=== PATIENT | female | born 1980 | race Caucasian/White ===

== ENCOUNTER → 2020-03-21 | Outpatient (CLI) | payer BC, OTHER | LOC: LAB 10:31 | PROVIDERS: ATTEND Internal Medicine Cardiovascular Disease | DX: U07.1 COVID-19 (principal) ==

== ENCOUNTER → 2020-06-29 | Outpatient (CLI) | payer BC, OTHER | LOC: RAD 10:55 | DX: Z12.31 Encounter for screening mammogram for malignant neoplasm of breast (principal) ==

== ENCOUNTER → 2020-11-22 | Outpatient (CLI) | payer OTHER | LOC: CAT 16:21 | PROVIDERS: ATTEND Internal Medicine Cardiovascular Disease | DX: Z13.6 Encounter for screening for cardiovascular disorders (principal); M47.817 Spondylosis without myelopathy or radiculopathy, lumbosacral region; M48.07 Spinal stenosis, lumbosacral region; M51.27 Other intervertebral disc displacement, lumbosacral region; M51.25 Other intervertebral disc displacement, thoracolumbar region; E78.00 Pure hypercholesterolemia, unspecified; I25.10 Atherosclerotic heart disease of native coronary artery without angina pectoris ==

== ENCOUNTER → 2020-11-22 | Outpatient (CLI) | payer OTHER ==
[~2020-11-22] MED LIST: DICLOFENAC SODI75 MG PO; FARXIGA10 MG PO; FLEXERIL PO; LEVO-T50 MCG PO; LYRICA 50 MG50 MG PO; METFORMIN HCL500 M3 PO; OZEMPIC1 MG/0.75 SUBQ; PERCOCET 5-3251 EACH PO; ROSUVASTATIN CA20 MG PO
== END ==
LOC: MRI 08:53
DX: Z13.6 Encounter for screening for cardiovascular disorders (principal); M51.27 Other intervertebral disc displacement, lumbosacral region; M47.817 Spondylosis without myelopathy or radiculopathy, lumbosacral region; E78.00 Pure hypercholesterolemia, unspecified; I25.10 Atherosclerotic heart disease of native coronary artery without angina pectoris

== ENCOUNTER → 2020-12-05 | Outpatient (CLI) | payer OTHER ==
[~2020-12-05] VITALS: Ht 170.2 cm; Wt 61.2 kg
[2020-12-05 08:45] VITALS: BP 125/75
--- NOTE | 2020-12-05 09:12 | NUR ---
Pain Clinic Assessment: 1. History of Osteoarthritis: Not Applicable History of Rheumatoid Arthritis: Not Applicable 2. Height: 5 ft. 7 in. 170.2 cm. Weight: 135.0 lb. oz. 61.236 kg. Patient's BMI: 21.1 3. Vital Signs: BP: 125/75 Pulse: 75 Resp: 14 Temp: 02 Sat: 100 ECG Mon: 4. Pain Intensity: 3 5. Fall Risk: Dizziness: N Needs help standing or walking: N Fallen in the last 3 months: N Fall risk comments: 6. Patient on Blood Thinner: None 7. History of Hypertension: N 8. Opioid Therapy greater than 6 weeks: Opiate Contract Signed: 9. Risk Assessment Tool Provided: 1 LOW RISK 10. Functional Assessment Tool: 11. Recreational Drug Use: Never Drug Type: Tobacco Use: Never Smoker Tobacco Type: Amount or Packs/day: How Many Years: Alcohol Use: Yes Frequency: Weekly Quant: 2
--- NOTE | 2020-12-13 10:47 | HPC ---
[facility] [place] [address] PAIN MANAGEMENT CONSULTATION Name: GENE ADAMS Room #: REG OTF [facility].#: [id number] Admission: 12/05/20 Attend Phys: Hao Mejia DO Discharge: Date of : 78 Report #: [id number] THIS REPORT FOR: cc: SHIVANI RITCHIE Physician not on staff Hao Mejia DO ~ cc: Jazmín Allen NP DATE OF SERVICE: 12/05/2020 REFERRING PHYSICIAN: Jazmín Allen NP. CHIEF COMPLAINT: Low back pain, left lower extremity pain with paresthesias. HISTORY OF PRESENT ILLNESS: As you know, the patient is a pleasant 40-year-old female reporting acute onset of back pain that started in 2000, but was controllable with lyxc-zkn-qdxmzcz medications, rest and relaxation. She states that as of 08/2020, her pain intensified. She is now placing pain up to 7/10. She denies specific injury or trauma that may have led to symptom development. She states she would typically have just low back symptoms with spikes lasting for a couple of days and this occurred about every 3 months. She had a history of prior coccydynia as well, but this has subsequently resolved. She sought treatment through chiropractic manipulation for stretching exercises, massage therapy and typical chiropractic manipulation with benefit until just recently. She has trialled ibuprofen over the counter, oxycodone prescriptions and cyclobenzaprine for pain control, noting only transient improvement. Due to lack of improvement with conservative treatment options, the patient was subsequently referred on to our clinic to discuss interventional treatments. The patient reports pain today is continuous and steady with brief and momentary sharp shooting sensations. She indicates pain type as shooting, aching, sharp, numbness and tingling. Places current pain score 3/10, daily average of 2-3/10, worst pain has been as 9/10. The patient states that standing in place, turning left to right with rotation of the lumbar spine, bending over, coughing and sneezing exacerbate symptoms. Pain is improved with certain activities, muscle relaxers and lying down. She has been referred to our service to discuss interventional treatment options to address suspected lumbar radiculopathy. PAST MEDICAL HISTORY: 1. Diabetes mellitus type 2. 2. Hypothyroidism. 3. Dyslipidemia. PAST SURGICAL HISTORY: 1. Tonsillectomy. 2. section. 3. Gastric sleeve. [address] [address] PAIN MANAGEMENT CONSULTATION Name: GENE ADAMS Room #: REG CLI [facility]#: [id number] Admission: 12/05/20 Attend Phys: Hao Mejia DO Discharge: Date of : 78 Report #: [id number] 4. Abdominoplasty with breast augmentation. SOCIAL HISTORY: The patient denies tobacco. Denies IV or illicit drug use. Admits to 6 alcoholic beverages per week. She is currently employed as a nurse practitioner. She is working, not receiving workmen's compensation nor is she trying to obtain disability benefits. She is reporting no litigation in regards to pain. She is unaccompanied at today's visit. REVIEW OF SYSTEMS: Positive for irregular menses, thyroid disease, non-insulin dependent diabetes, chronic low back pain, and left lower extremity pain with paresthesias. All other review of systems negative per 12-point review of systems other than those listed in history of present illness. Pain impact score 23/70, mild interference of daily activities secondary to pain. ALLERGIES: No known drug allergies. CURRENT MEDICATIONS: Percocet 5/325 one tab every 6 hours p.r.n. for pain, cyclobenzaprine 10 mg 3 times a day p.r.n., metformin 500 mg twice a day, levothyroxine 50 mcg once a day, Ozempic 1 mg per week, Farxiga 10 mg once a day. IMAGING: MRI of the lumbar spine obtained 11/22/2020 shows a central disk protrusion at L5-S1 with abutment of anterior thecal sac tapering the central canal to 9.5 mm with early facet degenerative changes of minimal foraminal narrowing. There are endplate degenerative changes at the L5-S1 level. Minimal bulging at the L4-L5 level. Small right foraminal disk bulge at T12-L1 causing minimal right foraminal tapering. PHYSICAL EXAMINATION: VITAL SIGNS: Blood pressure 125/75, pulse 75, respiratory rate 14 and unlabored. The patient 100% on room air. Height 5 feet 7 inches tall, weight 135 pounds, BMI calculated 21.1. GENERAL: Well-developed, well-nourished, well-hydrated 40-year-old female appearing stated age. She is placing current pain score at 3/10. HEENT: Normocephalic, atraumatic. Pupils equal, round and responsive to light. Extraocular muscles are intact. Speech fluent. The patient deemed a good historian. She is wearing a mask in compliance with COVID-19 regulations. LUNGS: Clear. No wheezes, rhonchi, no rales. CARDIOVASCULAR: Regular. No appreciable gallop or rub. EXTREMITIES: Show no clubbing, no cyanosis, no edema. MUSCULOSKELETAL: Lower extremity strength equal and symmetrical, 5/5. Intact to light touch from L1 through S2 dermatomes. Seated straight leg raising negative. Supine straight leg raising positive on the left. AGNES test is negative. Modified Gaenslen's positive for axial low back pain. Ankle clonus [facility] [address] [place] [address] PAIN MANAGEMENT CONSULTATION Name: GENE ADAMS Room #: REG [facility].#: [id number] Admission: 12/05/20 Attend Phys: Hao Mejia DO Discharge: Date of : 78 Report #: [id number] negative. Babinski is negative. Deep tendon reflexes are equal and symmetrical 2+/4 at patella and Achilles. Ankle clonus negative. Gait is normal. Lumbar provocation testing with extension and rotation to the left causes intensification of pain. ASSESSMENT: 1. Symptomatic lumbar radiculopathy. 2. Displacement of lumbar intervertebral disk with radiculopathy. 3. Central canal stenosis of lumbar spine. 4. Lumbosacral spondylosis with radiculopathy. 5. Chronic intractable pain. PLAN: 1. Based on today's physical exam and history the patient has provided, the description the patient uses in regards to pain as well as location of symptoms, likely source of the patient's pain is lumbar radiculopathy. We discussed with the patient the treatment options, we have to address lumbar radicular symptoms. Following was discussed with the patient today. We discussed physical therapy, stretching exercises and core strengthening as a treatment approach. We discussed medication management with the addition of neuropathic pain medications such as amitriptyline, nortriptyline, Cymbalta, Lyrica or gabapentin. We discussed lumbar epidural injections under fluoroscopic guidance for which the patient was referred to our clinic. We also discussed surgical options with the patient today. After reviewing the risks and benefits of all proposed treatment options, the patient chose to begin the authorization process to undergo lumbar epidural injection. She also wishes to begin medication management. 2. Authorization should take us to is anywhere from 4-7 working days. We will begin that process immediately. Once she has the authorization available, we will have the patient return to undergo the first in a series of requested lumbar epidural injections under fluoroscopic guidance. 3. The patient will begin with Lyrica to address neuropathic pain. We recommend an escalation to 100 mg twice a day. She was given a prescription of Lyrica earlier, does not need the prescription today. We recommend increasing the Lyrica to an efficacious level. She will watch for side effects of sleepiness, disorientation, confusion and mental slowing. If she notes side effects, decrease to the dose prior and contact our clinic. 4. We spent with the patient over 20 minutes of time reviewing her MRI and the findings therein. I believe that conservative treatment would be most appropriate in this patient's case. We will see her back for the epidural injection proposed at today's visit. 5. We wish to thank the referring nurse practitioner that would be Jazmín Tiffany for the opportunity to see this patient in consultation. We will keep you apprised of response to treatment as we address lumbar radiculopathy. [address] [address] PAIN MANAGEMENT CONSULTATION Name: GENE ADAMS Room #: REG OTF [facility]#: [id number] Admission: 12/05/20 Attend Phys: Hao Mejia DO Discharge: Date of : 78 Report #: [id number] Again, we wish to thank you for the opportunity to see the patient in consultation. <ELECTRONICALLY SIGNED> By: Hao Mejia DO 12/13/20 [id number] Hao Mejia DO /chasidy
== END ==
LOC: PAIN 07:03
PROVIDERS: ATTEND Anesthesiology Pain Medicine
DX: M51.16 Intervertebral disc disorders with radiculopathy, lumbar region (principal); M47.27 Other spondylosis with radiculopathy, lumbosacral region; M48.061 Spinal stenosis, lumbar region without neurogenic claudication; G89.4 Chronic pain syndrome; Z79.899 Other long term (current) drug therapy; Z79.891 Long term (current) use of opiate analgesic

== ENCOUNTER → 2021-01-02 | Outpatient (CLI) | payer OTHER ==
[~2021-01-02] VITALS: Ht 170.2 cm; Wt 63.7 kg
--- NOTE | ~2021-01-02 | HPC ---
[facility] [address] [address] PAIN MANAGEMENT CONSULTATION Name: GENE ADAMS Room #: REG OTF [facility]#: [id number] Admission: 01/02/21 Attend Phys: Hao Mejia DO Discharge: Date of : 78 Report #: [id number] THIS REPORT FOR: cc: SHIVANI RITCHIE Physician not on staff Hao Mejia DO ~ cc: Shivani Gomez DATE OF SERVICE: 01/02/2021 DATE OF SERVICE: 01/02/2021. CHIEF COMPLAINT: Low back pain, left lower extremity pain with paresthesias. HISTORY OF PRESENT ILLNESS: As you know, the patient is a very pleasant 40-year-old female reporting acute onset of low back pain that started in 2000, was controllable with tvke-jua-irhzcou medications, rest and relaxation. She states that in 08/2020, her pain intensified. No inciting injury or trauma. The patient was seen in consultation per the request of the referring physician to discuss treatment for chronic lumbar radiculopathy. The patient was seen in consultation on 12/05/2020, given the diagnosis of symptomatic lumbar radiculopathy, secondary to the displacement of lumbar intervertebral disk and central canal stenosis. The patient chose to begin with conservative treatment options. We will start the patient on Lyrica. She is taking 50 mg p.o. at bedtime with good benefit, but continues to experience symptoms of level up to 1-2/10. She returns today in followup visit to discuss continued treatment options for lumbar radiculopathy and discussed the possibility of undergoing a lumbar epidural injection under fluoroscopic guidance. She is placing pain again at about -05/31. ALLERGIES: No known drug allergies. CURRENT MEDICATIONS: Percocet 5/325 one tab every 6 hours p.r.n. for pain, cyclobenzaprine 10 mg 3 times a day, metformin 500 mg b.i.d., levothyroxine 50 mcg per day, Ozempic 1 mg once a week, Farxiga 10 mg once a day, Lyrica 50 mg p.o. at bedtime. SOCIAL HISTORY: The patient denies tobacco. Denies IV or illicit drug use. Admits to 6 alcoholic beverages per week. She is employed as a nurse practitioner working, not receiving workmen's compensation, unaccompanied today. IMAGING: No new imaging available. PHYSICAL EXAMINATION: VITAL SIGNS: Blood pressure 116/70, pulse 64, respiratory rate 14 and unlabored. The patient 99% on room air. Height 5 feet 7 inches tall, weight 140.4 pounds, BMI [place] 22[place] [address] PAIN MANAGEMENT CONSULTATION Name: GENE ADAMS Room #: REG OTF [facility].#: [id number] Admission: 01/02/21 Attend Phys: Hao Mejia DO Discharge: Date of : 78 Report #: [id number] GENERAL: Well-developed, well-nourished, well-hydrated 40-year-old female appearing stated age, pain is rated today 1-2/10. HEENT: Normocephalic, atraumatic. Pupils equal, round and responsive to light. Speech is fluent. EXTREMITIES: Show no clubbing, no cyanosis. No appreciable edema. MUSCULOSKELETAL: Lower extremity strength remains symmetrical again today. Seated straight leg raising is negative. Supine straight leg raising remains positive on the right approximately 60-degree angle. Ankle clonus negative. Babinski is negative. ASSESSMENT: 1. Symptomatic lumbar radiculopathy. 2. Displacement of lumbar intervertebral disk with radiculopathy. 3. Central canal stenosis of lumbar spine. 4. Lumbosacral spondylosis with radiculopathy. 5. Chronic intractable pain. PLAN: 1. The patient returns today in followup visit stating that the Lyrica 50 mg at night is working fairly well for pain control. The patient is not confident she wants to remain on Lyrica long-term. We did discuss the possibility of adjusting the Lyrica further for greater analgesic benefit. She will consider this option, but does wish to move forward with a lumbar epidural injection under fluoroscopic guidance. 2. Due to third green party payer restrictions authorization has to be obtained before the patient could undergo a lumbar epidural injection. We are planning to have the patient undergo the first in a series of lumbar epidural injections this Friday at 8:00 a.m. This works well for the patient scheduled as she is off writing, can be able to go home and rest and relax after the procedure, allowing for greater efficacy of the shot of the injection. The patient is agreeable with the plan. We will make the appointment for Friday of this week. 3. No changes were made in the patient's medication management at this time. She will continue current medical therapy as prior prescribed. 4. We plan to see the patient back in followup visit 01/05/2021 to undergo the first in a series of lumbar epidural injections. By: [id number] Hao Mejia DO /nt
[2021-01-02 09:48] VITALS: BP 116/70
--- NOTE | 2021-01-02 09:59 | NUR ---
Pain Clinic Assessment: 1. History of Osteoarthritis: Not Applicable History of Rheumatoid Arthritis: Not Applicable 2. Height: 5 ft. 7 in. 170.2 cm. Weight: 140.4 lb. oz. 63.685 kg. Patient's BMI: 22.0 3. Vital Signs: BP: 116/70 Pulse: 64 Resp: 14 Temp: 02 Sat: 99 ECG Mon: 4. Pain Intensity: 1 w/activity 5. Fall Risk: Dizziness: N Needs help standing or walking: N Fallen in the last 3 months: N Fall risk comments: 6. Patient on Blood Thinner: None 7. History of Hypertension: N 8. Opioid Therapy greater than 6 weeks: Y Opiate Contract Signed: 9. Risk Assessment Tool Provided: 1 LOW RISK 10. Functional Assessment Tool: 11. Recreational Drug Use: Never Drug Type: Tobacco Use: Never Smoker Tobacco Type: Amount or Packs/day: How Many Years: Alcohol Use: Yes Frequency: Quant:
== END ==
LOC: PAIN 07:03
PROVIDERS: ATTEND Anesthesiology Pain Medicine
DX: G89.29 Other chronic pain (principal); M51.16 Intervertebral disc disorders with radiculopathy, lumbar region; M47.27 Other spondylosis with radiculopathy, lumbosacral region; M48.061 Spinal stenosis, lumbar region without neurogenic claudication

== ENCOUNTER → 2021-01-05 | Outpatient (CLI) | payer OTHER ==
[~2021-01-05] VITALS: Ht 170.2 cm; Wt 63.5 kg
[2021-01-05 07:54] VITALS: BP 118/71
--- NOTE | 2021-01-09 09:20 | HPC ---
[facility] [place] [address] [place] [address] PAIN MANAGEMENT CONSULTATION Name: GENE ADAMS Room #: REG OTF [facility].#: [id number] Admission: 01/05/21 Attend Phys: Hao Mejia DO Discharge: Date of : 78 Report #: [id number] THIS REPORT FOR: cc: SHIVANI RITCHIE Physician not on staff Hao Mejia DO ~ cc: Referring Nurse Practitioner DATE OF SERVICE: 01/05/2021 CHIEF COMPLAINT: Low back pain, left lower extremity pain with paresthesias. HISTORY OF PRESENT ILLNESS: As you know, the patient is a very pleasant 40-year-old female reporting acute onset of low back pain that started in 2000. Originally, the pain was controllable with kibo-ica-bzapzmd medications, rest, and relaxation. In 08/2020, her pain intensified. No inciting injury or trauma. She was seen in consultation per the request of referring primary care team for evaluation. She was seen in consultation on 12/05/2020, diagnosed with symptomatic lumbar radiculopathy secondary to the displacement of lumbar intervertebral disk. We started the patient on conservative treatment utilizing Lyrica, which has provided benefit. She returns today in followup visit to undergo lumbar epidural injection under fluoroscopic guidance in hopes of building on success of the Lyrica therapy. The patient reports that today pain level of 2/10. She is denying any new injury or trauma that may have led to continuation of symptoms. There have been no changes in medication management since her last visit. ALLERGIES: No known drug allergies. CURRENT MEDICATIONS: Percocet, cyclobenzaprine, metformin, levothyroxine, Ozempic, Farxiga, Lyrica. SOCIAL HISTORY: The patient denies tobacco. Denies IV or illicit drug use. Admits to 6 alcoholic beverages per week. 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 IMAGING: No new imaging available. PHYSICAL EXAMINATION: VITAL SIGNS: Blood pressure 118/71, pulse 81, respiratory rate 16 and unlabored. The patient 100% on room air. Height 5 feet 7 inches tall, weight 140 pounds, BMI calculated 21.9. GENERAL: Well-developed, well-nourished, well-hydrated 40-year-old female appearing stated age, pain is rated today 2/10. HEENT: Normocephalic, atraumatic. Pupils equal, round and responsive. She is wearing a mask in compliance with COVID-[place] [address] PAIN MANAGEMENT CONSULTATION Name: GENE ADAMS Room #: REG [facility].#: [id number] Admission: 01/05/21 Attend Phys: Hao Mejia DO Discharge: Date of : 78 Report #: [id number] EXTREMITIES: Show no clubbing, no cyanosis, no edema. MUSCULOSKELETAL: Lower extremity strength is symmetrical. Muscle bulk and tone is equal and symmetrical. Seated straight leg raising negative. Supine straight leg raising remains positive on the right. Gait appears mildly antalgic favoring right lower extremity. ASSESSMENT: 1. Symptomatic lumbar radiculopathy. 2. Displacement of lumbar intervertebral disk with radiculopathy. 3. Central canal stenosis of lumbar spine. 4. Lumbosacral spondylosis with radiculopathy. 5. Chronic intractable pain. PLAN: 1. The patient returns today in followup visit to undergo lumbar epidural injection under fluoroscopic guidance. The patient has been advised of the risks and the benefits of a lumbar epidural injection. These risks include but are not necessarily limited to bleeding, bruising, infection, worsening pain, no relief of pain, also risk of temporary or permanent muscle weakness, temporary or permanent nerve damage, possible paralysis, and . The patient states understood and wished to proceed. 2. No medication changes made at today's visit. The patient will continue current medical therapy as prior prescribed. 3. Plan to see the patient back in followup visit in 1 month. At that time, review the efficacy of today's epidural injection and determine next in a series of epidural injections that might be recommended. PROCEDURE NOTE: DESCRIPTION OF PROCEDURE: L5-S1 parasagittal epidural steroid injection under fluoroscopic guidance. This is the first procedure of the first series that the patient is undergoing. After obtaining written consent, the patient was taken back to the fluoroscopy suite, placed in a prone position with pillow under the abdomen to decrease lumbar lordosis. The skin overlying the lumbosacral area was then prepped and draped in aseptic fashion. The L5-S1 vertebral interspace was then identified by AP fluoroscopy. The skin and subcutaneous tissue overlying the target site of injection was anesthetized with 3 mL 1% lidocaine. A 20-gauge 3-1/2 inch Tuohy needle was then advanced under fluoroscopic guidance towards the epidural space using a paramedian approach. The epidural space was identified using loss of resistance to air technique. After negative aspiration for heme or cerebrospinal fluid, a total of 1 mL of Omnipaque was injected. A lumbar epidurogram was confirmed using both AP and lateral fluoroscopy. After negative aspiration for heme or cerebrospinal fluid, 5 mL of a solution [address] [address] PAIN MANAGEMENT CONSULTATION Name: GENE ADAMS Room #: REG OTF [facility]#: [id number] Admission: 01/05/21 Attend Phys: Hao Mejia DO Discharge: Date of : 78 Report #: [id number] containing 2 mL 40 mg per mL 80 mg total triamcinolone along with 3 mL of lidocaine 1% was injected in increments. Contrast spread was noted posterior epidural space. The needle was then retracted approximately half way and needle tract flushed with 1 mL of lidocaine. Needle was then removed. There were no apparent sensory or motor deficits in the lower extremity following the procedure. A sterile bandage was placed over the injection site. The heart rate, pulse, oximetry and blood pressure were continuously monitored after the procedure. There were no apparent complications. The patient tolerated the procedure well and was carefully escorted to the recovery room in stable condition. There were no apparent complications. After meeting discharge criteria, the patient was then discharged home. <ELECTRONICALLY SIGNED> By: Hao Mejia DO 01/09/2120 0746 1108 Hao Mejia DO /nt
== END | disposition home or self-care (01) ==
LOC: PAIN 06:55
PROVIDERS: ATTEND Anesthesiology Pain Medicine
DX: M51.16 Intervertebral disc disorders with radiculopathy, lumbar region (principal); M47.27 Other spondylosis with radiculopathy, lumbosacral region; M48.02 Spinal stenosis, cervical region; G89.29 Other chronic pain; Z98.890 Other specified postprocedural states; Z79.899 Other long term (current) drug therapy